=== PATIENT | male | born 1980 | race African-American/Black ===

== ENCOUNTER 2021-01-20 10:59 | Emergency (ER) | payer MEDICAID ==
[~2021-01-20] VITALS: Ht 182.9 cm; Wt 81.0 kg
[2021-01-20 11:03] VITALS: BP 136/99
[2021-01-20] MEDS ORDERED: ACET-2708 PO (13:42)
== END 2021-01-20 14:24 | disposition home or self-care (01) ==
LOC: ER 10:59
DX: S67.192A Crushing injury of right middle finger, initial encounter (principal); S67.198A Crushing injury of other finger, initial encounter; X58.XXXA Exposure to other specified factors, initial encounter; Y93.89 Activity, other specified; Y92.89 Other specified places as the place of occurrence of the external cause; Y99.8 Other external cause status
CPT/HCPCS: 29130; 73140; 99283